=== PATIENT | female | born 1985 | race African-American/Black ===

== ENCOUNTER 2016-12-15 05:03 | Emergency (ER) | payer MEDICAID ==
[~2016-12-15] VITALS: Ht 154.9 cm; Wt 120.0 kg
[2016-12-15 06:15] VITALS: BP 111/70
== END 2016-12-15 06:46 | disposition home or self-care (01) ==
LOC: ER 05:04
DX: N64.4 Mastodynia (principal); Z90.710 Acquired absence of both cervix and uterus; Z91.018 Allergy to other foods
CPT/HCPCS: 99283; Z7610

== ENCOUNTER 2017-04-18 22:54 | Emergency (ER) | payer MEDICAID ==
[2017-04-19] MEDS ORDERED: KETOROLAC 30MG/ML VIAL IV ONE (06:30)
[2017-04-19] MEDS ORDERED: SODIUM CHLORIDE 0.9% 1,000 ML IV ONE ×2 (06:30→08:15)
[2017-04-19 09:57] VITALS: BP 104/66
== END 2017-04-19 11:02 | disposition home or self-care (01) ==
LOC: ER 22:54
DX: G43.909 Migraine, unspecified, not intractable, without status migrainosus (principal); R07.89 Other chest pain; Z90.710 Acquired absence of both cervix and uterus
CPT/HCPCS: 81025; 93005; 96361; 96374; 99285; J1885; J7030; Z7610